=== PATIENT | male | born 1965 | race Caucasian/White ===

== ENCOUNTER 2022-04-19 11:03 | Day surgery (SDC) | payer OTHER ==
[~2022-04-19] VITALS: Ht 162.6 cm; Wt 63.0 kg
[2022-04-19] MEDS ORDERED: fentaNYL citrate 0.05 MG/ML VIAL ONE (15:13)
[2022-04-19] MEDS ORDERED: LIDOCAINE 2% 100 MG/5 ML UJET TP ONE (15:13)
[2022-04-19] MEDS ORDERED: fentaNYL citrate 0.05 MG/ML VIAL IVP ONE (16:10)
== END 2022-04-19 16:10 | disposition home or self-care (01) ==
LOC: MDS 11:03 → MMU 12:11 → MDS 16:10
PROVIDERS: ATTEND Internal Medicine Gastroenterology
DX: Z12.11 Encounter for screening for malignant neoplasm of colon (principal); K21.9 Gastro-esophageal reflux disease without esophagitis; M19.90 Unspecified osteoarthritis, unspecified site; Z20.822 Contact with and (suspected) exposure to COVID-19
CPT/HCPCS: 45378; 87426; J3010